=== PATIENT | female | born 1990 | race Hispanic/Latino ===

== ENCOUNTER 2021-04-12 18:18 | Emergency (ER) | payer OTHER, SELFPAY ==
--- NOTE | ~2021-04-12 | XR_ITS ---
EXAMINATION: XR abdomen/kub 1V INDICATION: Right flank pain and hematuria TECHNIQUE: Supine view of the abdomen is obtained. COMPARISON: None FINDINGS: There is a subtle 2 mm density in the right pelvis which could reflect bowel contents, phle bolith, or right distal ureteral stone. There is a moderate volume of colonic stool. The bowel gas pa ttern is normal. IMPRESSION: 1. Subtle 2 mm density of the right renal pelvis which could reflect bowel contents, phlebolith, righ t distal ureteral stone. Reviewed, dictated and finalized at location F. K SERVICE MANAGER IMPRESSION: 1. Subtle 2 mm density of the right renal pelvis which could reflect bowel cont ents, phlebolith, right distal ureteral stone.
[2021-04-12 18:26] VITALS: BP 123/69; PULSE 83; RESP 16; TEMP 36.7; O2SAT 100
--- NOTE | 2021-04-12 19:31 | ED.ABDPAIN ---
HPI - Abdominal Pain General Chief Complaint: Abdominal Pain Stated Complaint: abd pain Time Seen by Provider: 04/12/21 19:23 Source: patient and RN notes reviewed Mode of arrival: ambulatory Limitations: no limitations History of Present Illness HPI narrative: Patient presents today complaining of suprapubic pressure radiating from the right flank since this morning, worsening throughout the day. Denies nausea, vomiting, diarrhea, chills or sweats, fever, dysuria, hematuria, frequency. She currently rates her pain 7/10 and has tried no medication for symptoms prior to arrival. MD elicited complaint: abdominal pain and flank pain Related Data Home Medications Medication Instructions Recorded Confirmed progesterone micronized 200 mg PO DAILY 04/12/21 04/12/21 Allergies Allergy/AdvReac Type Severity Reaction Status Date / Time No Known Allergies Allergy Verified 04/12/21 19:03 Review of Systems Review of Systems: CONSTITUTIONAL: Denies body aches, fever, chills, or sweats. EYES: Denies visual changes, redness, or discharge. ENT: Denies rhinorrhea, congestion, sore throat, or otalgia. CARDIOVASCULAR: Denies chest pain, palpitations, or edema. RESPIRATORY: Denies cough or dyspnea. GASTROINTESTINAL: Denies nausea, vomiting, or diarrhea.+ Abdominal pain, flank pain GENITOURINARY: Denies dysuria or hematuria. SKIN: Denies rash, itching, or wounds. MUSCULOSKELETAL: Denies back pain, joint pain, or myalgia. NEUROLOGIC: Denies headache, numbness, tingling, or weakness. PSYCH: Denies depression or anxiety. [facility] Family History Family History Mother Family history of malignant neoplasm of breast in first degree relative Comments At time of signature, I have reviewed and agree with nursing past medical, surgical, social and family history unless otherwise noted. Please see nursing chart for further information. There is no relevant family history pertinent to the presenting complaint Exam Narrative: GENERAL: Well-appearing, well-nourished, and in no acute distress. HEAD: Normocephalic, atraumatic. EYES: EOMI. No redness or drainage. Conjunctivae normal. ENT: Mucous membranes pink and moist. NECK: Normal AROM. CHEST: No respiratory distress. Clear to auscultation. HEART: Regular rate and rhythm. No murmur appreciated. Normal peripheral pulses. ABDOMEN: Soft,nondistended, normal active bowel sounds. Suprapubic tenderness.-CVAT MUSCULOSKELETAL: No bony tenderness. EXTREMITIES: Normal range of motion. No edema. SKIN: Warm, dry, no rash. Capillary refill normal. Normal skin turgor. NEURO: No focal deficits. Alert and oriented x3. Gait steady. PSYCH: Normal affect. No signs of depression or anxiety. Course Course Level of Care: Express Care Visit Vital Signs Vital signs: Vital Signs Temperature 98.0 F 04/12/21 18:26 Pulse Rate 83 04/12/21 18:26 Respiratory Rate 16 04/12/21 18:26 Blood Pressure 123/69 04/12/21 18:26 Pulse Oximetry 100 04/12/21 18:26 Temperature 98.0 F 04/12/21 18:26 Pulse Rate 83 04/12/21 18:26 Respiratory Rate 16 04/12/21 18:26 Blood Pressure 123/69 04/12/21 18:26 Pulse Oximetry 100 04/12/21 18:26 Reviewed. Pt has been instructed to follow up with her PCP regarding her elevated blood pressure today. MDM - Abdominal Pain Differential Diagnosis Differential diagnosis: Likely abdominal pain, acute appendicitis and calculus of kidney Lab Data Attestation: I reviewed the patient's lab results. Labs: Urine Glucose Negative Reference Range: Negative Urine Bilirubin Negative Reference Range: Negative Urine Ketone Negative Reference Range: Negative Urine Specific [place] 1.030
== END 2021-04-12 20:08 | disposition home or self-care (01) ==
PROVIDERS: Emergency Provider Nurse Practitioner
DX: N20.1 Calculus of ureter (principal)
CPT/HCPCS: 74018; 81003; 99213; G0463

== ENCOUNTER 2022-05-08 10:35 | Outpatient (CLI) | payer OTHER, SELFPAY ==
[2022-05-08 19:29] LABS: Alanine Aminotransferase 242 U/L (6-35); Alkaline Phosphatase 112 U/L (38-126); Anion Gap 5 mmol/L (8-16); Aspartate Amino Transferase 149 U/L (14-36); Bilirubin,Total 0.4 mg/dL (0.2-1.3); Blood Urea Nitrogen 10 mg/dL (7-17); Calcium 9.1 mg/dL (8.4-10.2); Carbon Dioxide 27 mmol/L (22-30); Chloride 107 mmol/L (98-107); Cholesterol 155 mg/dL (0-200); Estimated Glomerular Filt Rate > 60; Glucose 104 mg/dL (65-110); HDL Direct 42 mg/dL; Potassium 3.7 mmol/L (3.4-5.0); Sodium 139 mmol/L (137-145); Triglycerides 140 mg/dL (<150)
[2022-05-08 19:42] LABS: LDL Cholesterol Direct 69 mg/dL
[2022-05-08 19:46] LABS: Beta HCG Quantitative < 2.39 mIU/ML
[2022-05-08 20:00] LABS: Thyroid Stimulating Hormone 0.505 uIU/mL (0.465-4.680)
[2022-05-08 20:37] LABS: Basophils Absolute Auto 0.1 K/mm3 (0.0-0.1); Eosinophils Absolute Auto 0.1 K/mm3 (0-0.3); Eosinophils Percent Auto 1.4 % (0-4.4); Hematocrit 36.3 % (37.0-47.0); Hemoglobin 11.2 g/dL (12.0-15.0); Immature Granulocyte Absolute 0.02 K/mm3 (0.00-0.031); Immature Granulocyte Percent A 0.3 % (0-0.5); Lymphocytes Absolute Auto 4.45 K/mm3 (0.9-3.2); Lymphocytes Percent Auto 60.5 % (18.3-44.2); Mean Corpuscular HGB Conc 30.9 g/dl (32-36); Mean Corpuscular Hemoglobin 25.5 pg (26-34); Mean Corpuscular Volume 82.7 fl (80-100); Mean Platelet Volume 10.6 fl (7.4-10.4); Monocytes Absolute Auto 0.4 K/mm3 (0.1-0.6); Monocytes Percent Auto 5.6 % (2.6-8.5); Neutrophils Absolute Auto 2.3 K/mm3 (1.3-6.7); Neutrophils Percent Auto 31.2 % (45.5-73.1); Platelet Count Result 300 k/mm3 (150-375); Red Blood Count 4.39 M/mm3 (4.2-5.4); White Blood Count 7.4 K/mm3 (4.5-10.0)
[2022-05-08 20:58] LABS: Atypical Lymphocytes Present; Ovalocytes 1+ (NORMAL); Platelet Estimate Adequate (Adequate); Schistocytes None Seen (NORMAL)
== END 2022-05-08 10:36 | disposition home or self-care (01) ==
LOC: ANHGOSHLAB 10:36
PROVIDERS: PCP Internal Medicine; Visit Provider Nurse Practitioner
DX: R11.2 Nausea with vomiting, unspecified (principal); Z13.220 Encounter for screening for lipoid disorders
CPT/HCPCS: 36415; 80053; 80061; 84443; 84702; 85025

== ENCOUNTER 2022-05-09 14:56 | Outpatient (CLI) | payer OTHER, SELFPAY ==
[2022-05-09 19:30] LABS: Immature Reticulocyte Fraction 23.8 % (3.0-15.9); Reticulocyte Hemoglobin Conten 25.5 pg (28.2-35.7); Reticulocyte Percent 1.73 % (0.7-4.3); Reticulocytes Absolute 0.07 B/L (32.2-175.7)
[2022-05-09 20:12] LABS: Iron 33 ug/dL (37-170)
[2022-05-09 20:22] LABS: Percent Iron Saturation 7 % (20-50)
[2022-05-09 20:43] LABS: Hepatitis B Surface Antigen Negative (Negative)
[2022-05-09 21:01] LABS: Hepatitis C Virus Antibody Negative (Negative)
[2022-05-09 21:14] LABS: HIV 1/2 Ab P24 Ag Result Negative (Negative)
[2022-05-09 21:56] LABS: Folic Acid 16.1 ng/mL (2.76->20)
[2022-05-14 19:28] LABS: Gliadin AB, IgG <1.0 U/mL (<15.0); TTG IGA AB <1.0 U/mL (<15.0)
== END 2022-05-09 14:57 | disposition home or self-care (01) ==
LOC: ANHGOSHLAB 14:57
PROVIDERS: PCP Internal Medicine; Visit Provider Nurse Practitioner
DX: R74.01 Elevation of levels of liver transaminase levels (principal); D64.9 Anemia, unspecified
CPT/HCPCS: 36415; 82607; 82728; 82746; 83516; 83540; 83550; 85046; 86255; 86703; 86803; 87340; G0432

== ENCOUNTER → 2022-05-15 08:43 | Outpatient (CLI) | payer OTHER, SELFPAY ==
--- NOTE | ~2022-05-15 | US_ITS ---
EXAMINATION: US abdomen limited DATE: 05/15/2022 09:09 INDICATION: Elevated liver function tests TECHNIQUE: Multiple grayscale and Doppler ultrasound images of the abdomen were obtained. COMPARISON: None available FINDINGS: The head and body of the pancreas are normal. The pancreatic tail is obscured by bowel gas. The liver is normal with normal echogenicity and echotexture. No surface nodularity. Normal hepatope christen flow in the main portal vein. The gallbladder is normal with no abnormal wall thickening, pericho lecystic fluid or stones. The normal common bile duct measures 4 mm. There was no sonographic Fry sign. IMPRESSION: 1. Normal sonographic study of the gallbladder. Reviewed, dictated and finalized at location L. [employer]OR OF D[employer]ATFOR[employer]
== END ==
PROVIDERS: PCP Nurse Practitioner; Visit Provider Nurse Practitioner
DX: R74.01 Elevation of levels of liver transaminase levels (principal)
CPT/HCPCS: 76705

== ENCOUNTER 2022-05-30 07:52 | Outpatient (CLI) | payer OTHER, SELFPAY ==
--- NOTE | ~2022-05-30 | NM_ITS ---
EXAM: NM gastric emptying study DATE: 05/31/2022 10:44 DATA CONVERSION OPERATOR INDICATION: Nausea and vomiting. TECHNIQUE: A gastric emptying study was performed using the methodology of Alysia SOLANO, et al. J Nucl Med 2007; 48:568-572. The patient was given a meal consisting of 2 scrambled eggs labeled with mCi T c-99m sulfur colloid, 2 slices of toast, two packages of jam, and approximately 120 mL of water. Simu ltaneous anterior and posterior 1-min images of the abdomen were obtained with the patient supine at multiple time points over a total period of 4 hours. The geometric mean of anterior and posterior vie ws was determined, and the percentage retention was calculated for each time point. COMPARISON: Ultrasound dated 05/15/2022. FINDINGS: Gastric retention of the radiotracer-labeled meal was 55%, 37%, and 12% at the 1-hour, 2-h our, and 4-hour time points, respectively. With this technique, apparent rapid gastric emptying is mohan ggested by <30% gastric retention at 1 hour. Delayed gastric emptying is defined by gastric retention of >90% at 1 hour, >60% retention at 2 hours, or >10% retention at 4 hours. IMPRESSION: 1. Mildly delayed gastric emptying. Reviewed, dictated and finalized at location L. CONVERSION OPERATOR
== END 2022-05-30 07:53 | disposition home or self-care (01) ==
PROVIDERS: PCP Nurse Practitioner; Visit Provider Nurse Practitioner
DX: R11.2 Nausea with vomiting, unspecified (principal); K30 Functional dyspepsia
CPT/HCPCS: 78264; A9541

== ENCOUNTER 2022-07-16 08:16 | Outpatient (NON) | payer OTHER, SELFPAY | END 2022-07-16 08:17 | disposition home or self-care (01) | LOC: ANHLAB 07-17 08:18 | PROVIDERS: Visit Provider Internal Medicine Gastroenterology | DX: R11.2 Nausea with vomiting, unspecified (principal); A04.8 Other specified bacterial intestinal infections | CPT/HCPCS: 88305; 88342 ==

== ENCOUNTER 2022-07-16 08:53 | Day surgery (SDC) | payer OTHER, SELFPAY ==
[2022-05-30 09:13] VITALS: BMI 31.1
[2022-07-03 14:43] VITALS: BMI 29.9
[2022-07-16 09:25] VITALS: BP 111/72; PULSE 95; RESP 20; TEMP 36.4; O2SAT 100
--- NOTE | 2022-07-16 09:55 | WPDANESEPPF ---
Anes - Initial Pre Proc Eval Procedure: Operation Date: 07/16/22 11:00 Proposed Procedures p Esophagogastroduodenoscopy - Edy Camarena MD Date/Time: 07/16/22 09:55 Surgeon: Edy Camarena MD Pre Op Diagnosis: Nausea and Vomitting Patient Data Age: 31 Gender: F Height: 1.55 m Weight: 72 kg Allergies Allergy/AdvReac Type Severity Reaction Status Date / Time No Known Allergies Allergy Verified 05/08/22 09:47 Home Medications Medication Instructions Recorded Confirmed Type ondansetron HCl 4 mg tablet 4 mg PO DAILY PRN nausea and 05/08/22 05/08/22 Rx vomiting #20 tabs Patient hx anesthesia problems: none Family hx anesthesia problems: none Results Review: All pre-operative results and documents have been reviewed as part of the pre-operative evaluation. [facility] Past Medical History Medical History Endometriosis Endometriosis determined by laparoscopy Surgical History Surgical History (Updated 07/16/22 @ 09:56 by Jonatan Villanueva MD) H/O section H/O laparoscopy Family History Family History Mother Family history of malignant neoplasm of breast in first degree relative Social History Social History Smoking status: Never smoker Alcohol intake: current Alcohol use details: OCCASSIONAL Substance use: never Substance use type: does not use Lack of Transportation: No Lack of Food: Never True Current Housing: I Have Housing Concerned About Future Housing: No Difficulty Paying Gas/Electric Bills: No Difficulty Paying for Meds: No Currently Unemployed: No Education: High School Diploma/GED Difficulty w/ Childcare or Family Care: No Living arrangements: with family Spiritual care concerns: No Anes - Eval Final PreProcedure Day of Procedure 07/16/22 09:55 Patient weight: obese Heart: regular rate and rhythm Lungs: clear to auscultation Airway: Mallampati scale class II Neurological: alert and oriented Last oral intake: >/= 8 hours ASA classification: II Emergent: no Anesthetic plan: proceed Anesthesia type and monitoring: general GIVS and standard monitoring Results Review: All pre-operative results and documents have been reviewed as part of the pre-operative evaluation. Informed Consent: The patient's anesthetic plan and its attendant risks and benefits were discussed with the patient/family/POA. Questions were solicited and answers provided to the satisfaction of the patient/family/POA.
[2022-07-16] MEDS: LACTATED RINGERS 1,000 ML 150 ML IV CONT (10:08)
--- NOTE | 2022-07-16 10:27 | PM.HPGS ---
History of Present Illness History of Present Illness Consent: Risks, benefits, and alternatives have been discussed and questions answered. Patient agrees to proceed with procedure. Chief complaint: Nausea and Vomitting Narrative: Sharmaine Scruggs is a 31 year old female with intermittent n/v for 4 months, better since using antiemetics, denies smoking. Never had egd Review of Systems Constitutional: Constitutional: Denies headache(s) and Denies weakness Eyes: Eyes: Denies blurry vision ENT: Reports Normal hearing present, Denies headache(s) and Denies neck pain Cardiovascular: Cardiovascular: Denies chest pain and Denies dyspnea Respiratory: Respiratory: Denies dyspnea Gastrointestinal: Gastrointestinal: Reports no additional gastrointestinal complaints Genitourinary: Genitourinary: Denies dysuria Musculoskeletal: Musculoskeletal: Denies neck pain Integumentary/Breasts: Skin/Breast: Denies dry skin Neurologic: Reports Normal hearing present, Denies headache(s) and Denies weakness Psychiatric: Psychiatric: Denies anxiety Endocrine: Endocrine: Denies change in body appearance Hematologic/Lymphatic: Hematologic/Lymphatic: Denies easy bleeding Allergic/Immunologic: Allergic/Immunologic: Denies urticaria PMFSH Past Medical History Medical History Endometriosis Endometriosis determined by laparoscopy Surgical History Surgical History (Updated 07/16/22 @ 09:56 by Jonatan Villanueva MD) H/O section H/O laparoscopy Family History Family History Mother Family history of malignant neoplasm of breast in first degree relative Social History Social History Smoking status: Never smoker Alcohol intake: current Alcohol use details: OCCASSIONAL Substance use: never Substance use type: does not use Lack of Transportation: No Lack of Food: Never True Current Housing: I Have Housing Concerned About Future Housing: No Difficulty Paying Gas/Electric Bills: No Difficulty Paying for Meds: No Currently Unemployed: No Education: High School Diploma/GED Difficulty w/ Childcare or Family Care: No Living arrangements: with family Spiritual care concerns: No Meds Home Medications and Allergies Home Medications Medication Instructions Recorded Confirmed Type ondansetron HCl 4 mg tablet 4 mg PO DAILY PRN nausea and 05/08/22 07/16/22 Rx vomiting #20 tabs Allergies Allergy/AdvReac Type Severity Reaction Status Date / Time No Known Allergies Allergy Verified 07/16/22 10:04 Vital Signs Vital Signs - 24 hr 07/16/22 09:25 Temperature 97.6 F Pulse Rate 95 Respiratory Rate 20 Blood Pressure 111/72 Pulse Oximetry 100 Oxygen Delivery Room Air Exam Const: General: comfortable and no acute distress HENMT: Face/Nose/Sinus: Normal nares present Eyes: General: appearance normal, both eyes and all related structures Neck: Neck: no JVD Resp: Auscultation: clear to auscultation bilaterally Cardio: Rate: regular rate Rhythm: regular rhythm GI: Inspection: non-distended GI Palp: Yes Soft to palpation Skin: General skin exam: normal color Neuro: General: gait normal Speech: normal speech Extrem: General: normal to inspection Psych: Mental Status: mental status grossly normal Assessment and Plan Assessment and plan (1) Nausea & vomiting: Qualifiers: Vomiting type: unspecified Qualified Code(s): R11.2 - Nausea with vomiting, unspecified Code(s): R11.2 - Nausea with vomiting, unspecified Status: Acute Assessment and Plan: egd with bx
[2022-07-16 10:44] VITALS: BP 103/68; PULSE 107; RESP 16; O2SAT 88
[2022-07-16 10:47] VITALS: PULSE 110; RESP 20; O2SAT 97
[2022-07-16 10:54] VITALS: BP 111/72; PULSE 102; RESP 20; O2SAT 99
--- NOTE | 2022-07-16 11:03 | WPDANESPN ---
Anes - Prog Note Post-Op Date/Time: 07/16/22 11:03 Cardiovascular status: normal Respiratory status: normal Airway patency: baseline Mental status: baseline Post-Op hydration status: normal Vital Signs: Last Vital Signs Temp 36.4 C 07/16/22 09:25 Pulse 95 07/16/22 09:25 Resp 20 07/16/22 09:25 BP 111/72 07/16/22 09:25 Pulse Ox 100 07/16/22 09:25 O2 Del Method Room Air 07/16/22 09:25 Pain Score (VAS): 0/10 Patient Feedback: Patient satisfied with anesthetic care.
[2022-07-16 11:04] VITALS: BP 103/68; PULSE 97; RESP 20; O2SAT 98
[2022-07-16 11:14] VITALS: BP 105/69; PULSE 89; RESP 20; O2SAT 99
--- NOTE | 2022-07-16 11:58 | SUR.PHASEII ---
1046 Dr Villanueva notified that pt was on O2 at 3L and sats are up to 97% but was 88% on RA, no new orders given. NO s/s of distress at this time, pt does have a mild cough.
== END 2022-07-16 11:35 | disposition home or self-care (01) ==
PROVIDERS: Visit Provider Internal Medicine Gastroenterology
PROC: 0DJ08ZZ Inspection of Upper Intestinal Tract, Via Natural or Artificial Opening Endoscopic (ICD-10-PCS; CPT 43235; principal; 2022-07-16 11:00)
DX: R11.2 Nausea with vomiting, unspecified (principal)
CPT/HCPCS: 43239

== ENCOUNTER 2022-09-22 09:30 | Outpatient (CLI) | payer OTHER, SELFPAY ==
[2022-09-26 15:17] LABS: H pylori Ag Stool Not Detected (Not Detected)
== END 2022-09-22 09:31 | disposition home or self-care (01) ==
LOC: ANHLAB 09:30
PROVIDERS: Visit Provider Internal Medicine Gastroenterology
DX: K29.70 Gastritis, unspecified, without bleeding (principal); B96.81 Helicobacter pylori [H. pylori] as the cause of diseases classified elsewhere
CPT/HCPCS: 87338